=== PATIENT | male | born 1975 | race Caucasian/White ===

== ENCOUNTER 2017-09-17 02:34 | Inpatient (IN) | payer BC, OTHER ==
[~2017-09-17] VITALS: Ht 172.7 cm; Wt 81.9 kg
--- NOTE | ~2017-09-17 | EKG ---
[address] [address] ELECTROCARDIOGRAM REPORT Name: CHAS CANTRELL Room #: 432-P ADM IN M.R.#: [id number] Admission: 09/17/17 Attend Phys: Jacky Ervin MD Discharge: Date of : 71 Report #: [id number] THIS REPORT FOR: //name// [facility] ED Test Date: 2017-09-17 Test Time: 02:42:25 Pat Name: CHAS CANTRELL Department: Room: [facility] Gender: M Resaw Tailer: JT : 1975 Requested By: Chas Hyde Order Number: [id number] MD: Marcin Rivera Measurements Intervals [place] Rate: 134 P: 38 OR: 132 QRS: -7 QRSD: 94 T: 27 QT: 310 QTc: 463 Interpretive Statements Sinus tachycardia Compared to ECG 04/23/2013 22:21:27 Ventricular premature complex(es) no longer present Electronically Signed On 09-17-2017 8:13:43 PSYCHOLOGIST by Marcin Rivera [email or web address] <ELECTRONICALLY SIGNED> By: Marcin Rivera MD 09/17/17 0813 1 1 Marcin Rivera MD /JOSIAH
[~2017-09-17 02:34] MED LIST: ADDERALL 20 MG20 M1 PO; DEPO-TESTO100 MG/1 M IM; OXYCODONE HCL5 M1 PO; OXYCONTIN30 MG PO
[2017-09-17 02:35] VITALS: BP 163/103
[2017-09-17 03:05] LABS: HEMATOCRIT 43.2 % (42.0-52.0); HEMOGLOBIN 14.7 gm/dL (14.0-18.0); MCH 33.7 pg (26.0-34.0); MCV 99.1 fL (80.0-100.0); RBC 4.36 mil/uL (4.50-6.00); RDW 13.3 % (10.5-14.5); WBC 10.7 thou/uL (4.0-11.0)
[2017-09-17] MEDS ORDERED: VIVACTIL10 MG PO (03:07)
[2017-09-17 03:14] LABS: ANION GAP 15 mmol/L (7-16); BUN 19 mg/dL (7-18); CALCIUM 9.8 mg/dL (8.5-10.1); CHLORIDE 102 mmol/L (98-107); CO2 22 mmol/L (21-32); CREATININE 1.1 mg/dL (0.7-1.3); GLUCOSE 108 mg/dL (74-106); POTASSIUM 3.3 mmol/L (3.5-5.1); SODIUM 139 mmol/L (136-145)
[2017-09-17 03:23] LABS: ALBUMIN 3.9 g/dL (3.4-5.0); SGOT 76 U/L (15-37); SGPT 61 U/L (30-65); TOTAL BILIRUBIN 1.9 mg/dL (<0.1-1.0); TOTAL PROTEIN 6.9 g/dL (6.4-8.2); TROPONIN-I < 0.04 ng/mL (<0.06)
[2017-09-17 03:24] LABS: SALICYLATE < 2.8 mg/dL (2.8-20.0)
[2017-09-17 03:46] LABS: AMP/METHAMP POSITIVE (Negative); BARBITURATES Negative (Negative); BENZODIAZEPINES Negative (Negative); COCAINE Negative (Negative); METHADONE Negative (Negative); OPIATES Negative (Negative); PCP Negative (Negative)
[2017-09-17] MEDS ORDERED: VYVANSE10 MG (05:47)
[2017-09-17 06:00] VITALS: BP 130/87
[2017-09-17 06:01] VITALS: BP 144/85
[2017-09-17 06:27] VITALS: BP 130/87
[2017-09-17 06:27] LABS: TSH 2.029 uIU/mL (0.358-3.740)
[2017-09-17 07:02] LABS: FOLIC ACID 36.1 ng/mL (8.6-58.9)
[2017-09-17 16:04] VITALS: BP 121/76
[2017-09-17 19:43] VITALS: BP 119/94
[2017-09-18 00:36] VITALS: BP 120/95
[2017-09-18 03:39] VITALS: BP 128/81
[2017-09-18 06:17] LABS: ALBUMIN 3.1 g/dL (3.4-5.0); CALCIUM 8.1 mg/dL (8.5-10.1); CREATININE 0.9 mg/dL (0.7-1.3); POTASSIUM 3.9 mmol/L (3.5-5.1); TOTAL BILIRUBIN 1.2 mg/dL (<0.1-1.0); TOTAL PROTEIN 5.6 g/dL (6.4-8.2)
[2017-09-18 07:49] VITALS: BP 127/86
[2017-09-18 16:26] VITALS: BP 133/89
[2017-09-18 19:56] VITALS: BP 134/87
[2017-09-19 04:50] VITALS: BP 127/87
[2017-09-19 07:33] VITALS: BP 1123/80
[2017-09-19 09:58] VITALS: BP 1123/80
[2017-12-18] MEDS ORDERED: ATOMOXETINE HCL40 MG PO (10:10)
[2017-12-18] MEDS ORDERED: STRATTERA80 MG PO (10:11)
[2017-12-20] MEDS ORDERED: TOPAMAX 25 MG T25 M1 PO (07:59)
[2017-12-20] MEDS ORDERED: SERTRALINE HCL50 MG PO (08:02)
[2017-12-20] MEDS ORDERED: VITAMIN B-1100 M2 PO (08:03)
[2017-12-20] MEDS ORDERED: PRENATAL PO (08:03)
== END 2017-09-19 12:20 | DRG 897 ==
LOC: ER 02:34 → EROBS 04:34 → 4E 04:34 → ENTRNSPT 09-19 12:09 → EDTRNSPTSTS 09-19 12:11 → 4E 09-19 12:20
PROVIDERS: Emergency Medicine; Nurse Practitioner Family
DX: F10.239 Alcohol dependence with withdrawal, unspecified (principal); F23 Brief psychotic disorder; F41.8 Other specified anxiety disorders; F98.8 Other specified behavioral and emotional disorders with onset usually occurring in childhood and adolescence; Y90.9 Presence of alcohol in blood, level not specified; R00.1 Bradycardia, unspecified
CPT/HCPCS: 10183